=== PATIENT | female | born 1970 | race Caucasian/White ===

== ENCOUNTER 2020-11-06 19:58 | Emergency (ER) | payer OTHER ==
[2020-11-06 20:12] VITALS: BP 148/94; PULSE 71; TEMP 97.8; BMI 24.5
== END 2020-11-06 21:33 | disposition home or self-care (01) ==
LOC: FER 19:58
DX: S63.602A Unspecified sprain of left thumb, initial encounter (principal)
CPT/HCPCS: 73140-TC-LT-FY; 99284-25

== ENCOUNTER 2021-12-30 11:45 | Emergency (ER) | payer OTHER ==
[2021-12-30 11:50] VITALS: BMI 24.7
[2021-12-30 13:18] LABS: ALBUMIN 4.6 g/dl (3.4-5.0); BILIRUBIN,TOTAL 0.5 mg/dl (0.2-1); CALCIUM 9.9 mg/dl (8.5-10); CREATININE 0.8 mg/dl (0.55-1.3); HEMATOCRIT 41.6 % (32.4-45.2); HEMOGLOBIN 14.9 G/dL (10.7-15.3); MCH 31.1 pg (25.7-33.7); MCHC 35.7 g/dl (32.0-36.0); MEAN CELL VOLUME 87.1 fl (80-96); MEAN PLT VOLUME 9.4 fl (7.5-11.1); PLATELET COUNT 288.4 10^3/uL (134-434); RBC 4.78 10^6/uL (3.60-5.2); RDW 13.9 % (11.6-15.6); TOT PROT 7.6 g/dl (6.4-8.2); WHITE BLOOD COUNT 10.1 10^3/uL (4.0-10.8)
[2021-12-30] MEDS ORDERED: VANCOMYCIN HCL 1,500 MG in DEXTROSE 5%-WATER - 500 ML IVPB ONE (13:22)
[2021-12-30] MEDS ORDERED: cefTAZidime PENTAHYDRATE 1 GM/50ML PRE-DOCKED (RESTRICTED TO ID) IVPB ONE (13:25)
[2021-12-30] MEDS ORDERED: SODIUM CHLORIDE 0.9% 500 ML INFUS.BAG IV ONE (13:26)
[2021-12-30] MEDS ORDERED: VANCOMYCIN 500 MG VIAL (RESTRICTED TO ID ONLY) ONE (13:27)
[2021-12-30] MEDS ORDERED: VANCOMYCIN 1,000 MG VIAL (RESTRICTED TO ID ONLY) ONE (13:27)
[2021-12-30 13:52] LABS: PLATELET ESTIMATE ADEQUATE
[2021-12-30 14:29] LABS: ERYTHROCYTE SEDIMENTATION RATE 7 mm/hr (0-30)
[2021-12-30] MEDS ORDERED: ACETAMINOPHEN 500 MG TABLET (FP) PO ONE (15:48)
[2021-12-30] MEDS ORDERED: ACETAMINOPHEN 500 MG TABLET (FP) ONE (15:49)
[2021-12-30 18:08] VITALS: TEMP 97.8
[2021-12-30 21:19] VITALS: BP 132/68; PULSE 89
== END 2021-12-30 20:40 | disposition short-term general hospital (02) ==
LOC: FER 11:45
PROC: 3E033GC Introduction of Other Therapeutic Substance into Peripheral Vein, Percutaneous Approach (ICD-10-PCS; principal; 2021-12-30)
DX: M65.142 Other infective (teno)synovitis, left hand (principal)
CPT/HCPCS: 0241U-QW; 36415; 73140-TC-LT-FY; 80053; 85025; 85651; 86140; 87040; 99284-25